=== PATIENT | male | born 1970 | race Caucasian/White ===

== ENCOUNTER 2023-03-25 17:59 | Emergency (ER) | payer BC, SELFPAY ==
--- NOTE | ~2023-03-25 | XR_ITS ---
EXAMINATION: XR chest 2V DATE: 03/25/2023 19:43 INDICATION: Cough. Nasal congestion. TECHNIQUE: PA and lateral views of the chest were obtained. COMPARISON: None FINDINGS: Small calcified nodules in the left upper lung zone consistent with old granulomatous disease. No oth er airspace opacities, pulmonary edema, pleural effusion or pneumothorax. The cardiomediastinal silho uette is normal. Mild thoracic spondylosis with chronic appearing mild anterior wedging of a a few mi d thoracic vertebral bodies. IMPRESSION: 1. No acute cardiopulmonary disease. Reviewed, dictated and finalized at location A.
[2023-03-25 18:01] VITALS: BP 101/75; PULSE 87; RESP 16; TEMP 36.3; O2SAT 98
[2023-03-25 18:04] VITALS: BP 101/75; PULSE 86; RESP 18; TEMP 36.5; O2SAT 100
[2023-03-25 19:16] VITALS: BP 110/76; PULSE 77; RESP 16; O2SAT 99
--- NOTE | 2023-03-25 19:20 | ED.NAVMDI ---
HPI - Nausea/Vomiting/Diarrhea General Chief complaint: Nausea/Vomiting/Diarrhea Stated complaint: cough/phlegm and N/V Time Seen by Provider: 03/25/23 18:46 History of Present Illness HPI Narrative: Patient is a 52-year-old male presenting with nasal congestion, cough, nausea. States that for the last several weeks he has had a lot of nasal congestion and he can feel it dripping down the back of his throat. States that he has been coughing a lot. States that sometimes he feels nauseated because of the phlegm that goes down his throat. States that he feels like he has been wheezing sometimes. No fevers, chest pain, shortness of breath, lightheadedness, palpitations, abdominal pain, diarrhea, leg swelling, throat pain. Related Data Allergies Allergy/AdvReac Type Severity Reaction Status Date / Time No Known Allergies Allergy Verified 03/25/23 18:03 Review of Systems Review of Systems: All systems reviewed & are unremarkable except as noted in HPI and below Exam Narrative: GENERAL: Well-appearing, well-nourished, and in no acute distress. HEAD: Normocephalic, atraumatic. EYES: PERRLA and EOMI. ENT: + Nasal congestion NECK: Supple. CHEST: No respiratory distress. Mild scattered wheezing HEART: Regular rate and rhythm ABDOMEN: Soft, nontender, nondistended EXTREMITIES: Normal range of motion. No edema. SKIN: Warm, dry, no rash. NEURO: No focal deficits. Alert and oriented x3. PSYCH: Normal mood and affect. Course Vital Signs Vital signs: Vital Signs Temperature 97.3 F L 03/25/23 18:01 Pulse Rate 87 03/25/23 18:01 Respiratory Rate 16 03/25/23 18:01 Blood Pressure 101/75 03/25/23 18:01 Pulse Oximetry 98 03/25/23 18:01 Temperature 97.7 F 03/25/23 18:04 Pulse Rate 68 03/25/23 21:58 Respiratory Rate 20 03/25/23 21:58 Blood Pressure 124/74 03/25/23 21:58 Pulse Oximetry 99 03/25/23 21:58 Oxygen Delivery Room Air 03/25/23 20:29 MDM - Nausea/Vomiting/Diarrhea MDM Narrative Medical decision making narrative: Patient is a 52-year-old male presenting with nasal congestion, cough, nausea for several weeks. Vitals are stable. Patient is well-appearing and in no acute distress. Exam is remarkable for the above. From the description of his symptoms, I am concerned for seasonal allergies with postnasal drip causing ongoing cough and some nausea. We will evaluate for pneumonia, viral URI, check some blood work. He states that he has been intermittently using sinus medicine with minimal relief. States that he has had an inhaler in the past. Blood work is unremarkable. Chest x-ray shows no focal consolidations or other acute abnormalities. Patient is negative for COVID and influenza. On reevaluation, the patient is asking to go home which I think is reasonable. We will start him on a daily allergy pill. States that an inhaler has helped in the past, will send in a prescription for one. Advise close PCP follow-up. Appropriate return precautions given. Patient voiced understanding and is agreeable with plan. Discharged in stable condition Differential Diagnosis Differential diagnosis: Likely other (pneumonia, URI, allergies, postnasal drip) Medical Records Attestation: I reviewed the patient's medical records. Lab Data Attestation: I reviewed the patient's lab results. 03/25/23 20:03 03/25/23 20:03 Labs: Lab Results 03/25/23 Range/Units 20:03 WBC 7.1 (4.5-10.0) K/mm3 RBC 4.65 (4.6-6.20) M/mm3 Hgb 13.4 L (14.0-18.0) g/dL Hct 40.6 L (42.0-52.0) % MCV 87.3 (80-100) fl MCH 28.8 (26-34) pg MCHC 33.0 (32-36) g/dl RDW 13.1 (11.5-14.5) % Plt Count 284 (150-375) k/mm3 MPV 9.3 (7.4-10.4) fl Immature Gran % (Auto) 0.3 (0-0.5) % Neut % (Auto) 70.4 (45.5-73.1) % Lymph % (Auto) 18.1 L (18.3-44.2) % [place] % (Auto) 8.9 H (2.6-8.5) % Eos % (Auto) 1.6 (0-4.4) % Baso % (Auto) 0.7 (0.2-1.2) % Lymph # (Au
[2023-03-25] MEDS: SODIUM CHLORIDE 0.9% IV 1,000 ML 999 ML IV CONT (20:04)
[2023-03-25] MEDS: LORATADINE 10 MG TABLET PO (20:04)
[2023-03-25 20:17] LABS: Basophils Absolute Auto 0.1 K/mm3 (0.0-0.1); Basophils Percent Auto 0.7 % (0.2-1.2); Eosinophils Absolute Auto 0.1 K/mm3 (0-0.3); Eosinophils Percent Auto 1.6 % (0-4.4); Hematocrit 40.6 % (42.0-52.0); Hemoglobin 13.4 g/dL (14.0-18.0); Immature Granulocyte Absolute 0.02 K/mm3 (0.00-0.031); Immature Granulocyte Percent A 0.3 % (0-0.5); Lymphocytes Absolute Auto 1.28 K/mm3 (0.9-3.2); Lymphocytes Percent Auto 18.1 % (18.3-44.2); Mean Corpuscular Hemoglobin 28.8 pg (26-34); Mean Corpuscular Volume 87.3 fl (80-100); Mean Platelet Volume 9.3 fl (7.4-10.4); Monocytes Absolute Auto 0.6 K/mm3 (0.1-0.6); Monocytes Percent Auto 8.9 % (2.6-8.5); Neutrophils Percent Auto 70.4 % (45.5-73.1); Platelet Count Result 284 k/mm3 (150-375); Red Blood Count 4.65 M/mm3 (4.6-6.20); Red Cell Distribution Width 13.1 % (11.5-14.5); White Blood Count 7.1 K/mm3 (4.5-10.0)
[2023-03-25 20:31] LABS: Alanine Aminotransferase 16 U/L (6-50); Albumin Level 4.1 g/dL (3.5-5.1); Alkaline Phosphatase 79 U/L (38-126); Anion Gap 7 mmol/L (8-16); Aspartate Amino Transferase 19 U/L (17-59); Bilirubin,Total 0.8 mg/dL (0.2-1.3); Blood Urea Nitrogen 16 mg/dL (9-20); Calcium 8.6 mg/dL (8.4-10.2); Carbon Dioxide 27 mmol/L (22-30); Chloride 104 mmol/L (98-107); Estimated CRCL calculation 88 ml/min; Estimated Glomerular Filt Rate > 60; Glucose 89 mg/dL (65-110); Lipase 114 U/L (23-300); Potassium 3.6 mmol/L (3.4-5.0); Sodium 138 mmol/L (137-145)
[2023-03-25 20:53] LABS: Influenza A QL RT-PCR Negative (Negative); Influenza B QL RT-PCR Negative (Negative); RSV RNA, RT-PCR Negative (Negative); SARS-CoV-2 RNA PCR Negative (Negative)
[2023-03-25 21:58] VITALS: BP 124/74; PULSE 68; RESP 20; O2SAT 99
== END 2023-03-25 21:59 | disposition home or self-care (01) ==
PROVIDERS: Emergency Provider Emergency Medicine
DX: T78.40XA Allergy, unspecified, initial encounter (principal); R05.9 Cough, unspecified; R11.0 Nausea; Z20.822 Contact with and (suspected) exposure to COVID-19
CPT/HCPCS: 36415; 71046; 80053; 83690; 85025; 87637; 96360; 99283; A9270; J7030